=== PATIENT | male | born 1985 | race Caucasian/White ===

== ENCOUNTER 2025-07-16 02:27 | Emergency (ER) | payer BC, SELFPAY ==
[2025-07-16 02:30] VITALS: BP 134/104; PULSE 90; RESP 20; TEMP 36.2; O2SAT 99
[2025-07-16 02:35] VITALS: O2SAT 99
--- NOTE | 2025-07-16 02:35 | ED.ALLEREA ---
HPI - Allergic Reaction General Chief complaint: Allergic Reaction Stated complaint: hives Time Seen by Provider: 07/16/25 02:34 Source: patient Mode of arrival: ambulatory Limitations: no limitations History of Present Illness HPI narrative: This is a 39-year-old male with no significant past medical history presents the ED for rash. Patient states over the past couple days he has had a rash to his lower abdomen and his arms and legs. He does work in wooded areas but states that he is not allergic to poison mecca or poison oak and has never had a reaction although work before. He has been using Benadryl which was initially helping his itchiness but it is no longer helping prompting him to come to the ED. denies chest pain, shortness of breath, nausea vomiting. Related Data Allergies Allergy/AdvReac Type Severity Reaction Status Date / Time nkda Allergy Mild Unknown Uncoded 09/28/24 07:35 cats AdvReac Severe Difficulty Uncoded 09/28/24 07:35 Breathing fiber glass AdvReac Severe Rash Uncoded 09/28/24 07:35 Review of Systems Review of Systems: Gen.: Denies fevers or chills Eyes: Denies eye pain or visual change ENT: Denies congestion Respiratory: Denies shortness of breath or cough CV: Denies chest pain or palpitations GI: Denies abdominal pain nausea, emesis or diarrhea denies burning, urgency, frequency or hematuria Musculoskeletal: Denies back pain or muscle pain Neuro: Denies numbness, tingling, weakness or focal weakness Skin: As per HPI Except as documented, all other systems reviewed and negative PMFSH Past Medical History Medical History Encounter to establish care Thyroid disorder Exam Narrative: APPEARANCE: No acute distress, nontoxic, resting in bed EYES: EOMI HEENT: Normocephalic, atraumatic, OMM RESPIRATORY: No respiratory distress Clear to auscultation bilaterally with no rhonchi wheezing or rales. CARDIOVASCULAR: Regular rate and rhythm without murmurs rubs or gallops. ABDOMINAL: Soft, nontender, nondistended, no rebound or guarding MUSCULOSKELETAl: Moves all extremities. No clubbing, cyanosis or edema. NEURO: Awake and alert. Following commands, speech normal, no focal deficits SKIN:: Scattered urticaria rash to the lower abdomen in a bilateral forearms, and bilateral thighs PSYCHIATRIC: Normal affect/mood, Course Vital Signs Vital signs: Vital Signs Temperature 97.1 F L 07/16/25 02:30 Pulse Rate 90 07/16/25 02:30 Respiratory Rate 20 07/16/25 02:30 Blood Pressure 134/104 H 07/16/25 02:30 Pulse Oximetry 99 07/16/25 02:30 Temperature 97.1 F L 07/16/25 02:30 Pulse Rate 90 07/16/25 02:30 Respiratory Rate 20 07/16/25 02:30 Blood Pressure 134/104 H 07/16/25 02:30 Pulse Oximetry 99 07/16/25 02:35 Oxygen Delivery Room Air 07/16/25 02:35 MDM - Allergic Reaction MDM Narrative Medical decision making narrative: 39-year-old male Presenting for allergic reaction. On initial evaluation patient was in no acute distress afebrile, hemodynamic stable. Differentials include but are not limited to: Anaphylaxis, allergic reaction, contact dermatitis Notable exam findings: Scattered urticaria or rash to the lower abdomen, bilateral forearms and bilateral thighs. Patient does not meet criteria for anaphylaxis at this time. I suspect that he did have contact dermatitis from working in the [place]. As he has not had success with the Benadryl, he was educated on 2nd and 3rd generation antihistamine use. He will also be given a Medrol Dosepak. He was advised to follow-up with his PCP in the next week for re-evaluation. Patient was agreeable to this plan. Given strict return precautions. Medical Records Attestation: I reviewed the patient's medical records. Discharge Plan Discharge Clinical Impression: Contact dermatitis Qualifiers: Contact dermatitis type: irritant Contact dermatitis trigger: unspecified trigger Qualified Code(s): L24.9 - Irritant contact dermatitis, unspecified cause Patient Disposition: Home Condition: Stable Instructions: Antibiotic Form, Contact Dermatitis (ED) Additional Instructions: I would recommend switching from Benadryl to a daily allergy medication such as Zyrtec, Claritin, or Fadumo or any of their physical fitness trainer conversions. Take Medrol Dosepak as prescribed. Follow-up with the PCP in the next week for re-evaluation. Return to the ED for any new or worsening symptoms. Patient Language: Kazakh Prescriptions: New methylprednisolone [Medrol (Vasquez)] 4 mg tablets,dose pack See Rx Instructions .ROUTE .COMPLEX Qty: 21 0RF Rx Instructions: orally per package directions Follow-up/Referrals: Yeny Oliveros APRN [Primary Care Provider, Internal Medicine]
[2025-07-16 03:15] VITALS: BP 136/93; PULSE 89; RESP 18; O2SAT 99
== END 2025-07-16 03:16 | disposition home or self-care (01) ==
LOC: ANHED 02:43
PROVIDERS: Emergency Provider Student in an Organized Health Care Education/Training Program; PCP Nurse Practitioner Family
DX: L24.9 Irritant contact dermatitis, unspecified cause (principal)
CPT/HCPCS: 99283; J7512

== ENCOUNTER 2025-07-16 17:33 | Emergency (ER) | payer BC, SELFPAY ==
[2025-07-16 17:41] VITALS: BP 153/93; PULSE 87; RESP 18; TEMP 36.7; O2SAT 96
--- NOTE | 2025-07-16 18:16 | ED.SKABFB ---
HPI - Skin/Abscess/Foreign Bdy General Chief complaint: Skin/Abscess/Foreign Body Stated complaint: rash Time Seen by Provider: 07/16/25 17:45 Source: patient Mode of arrival: ambulatory Limitations: no limitations History of Present Illness HPI narrative: 39-year-old male presents with complaint of itchy hives to right upper arm, right side of trunk and bilateral thighs. Patient has had hive-like rash for the past 2-3 days. Was taking Benadryl that was controlling rash until itching and hives became worse in the middle the night. Patient was seen at ER around 2:00 a.m.. Given 20 mg prednisone, started Medrol Dosepak today. Patient states that hives are now worse. No difficulty breathing or swallowing. All systems reviewed and negative except as noted above. Related Data Allergies Allergy/AdvReac Type Severity Reaction Status Date / Time nkda Allergy Mild Unknown Uncoded 09/28/24 07:35 cats AdvReac Severe Difficulty Uncoded 09/28/24 07:35 Breathing fiber glass AdvReac Severe Rash Uncoded 09/28/24 07:35 [facility] Past Medical History Medical History Encounter to establish care Thyroid disorder Comments At time of signature, agree with nursing past medical, surgical, social and family history. There is no relevant family history pertinent to the presenting complaint. Exam Narrative: GENERAL: This is a well-nourished, well-developed patient, in no apparent distress. HEAD: normocephalic, atraumatic. EYES: PERRL. Sclera clear/white. Vision is grossly intact. EARS: External ears normal NOSE: External nose normal NECK: Neck supple, non-tender without lymphadenopathy, masses or thyromegaly. CARDIOVASCULAR: Regular rate and rhythm without murmurs, gallops, or rubs. RESPIRATORY: Clear to auscultation. Breath sounds equal bilaterally. No wheezes, rales, or rhonchi. SKIN: warm, Dry, intact with no suspicious lesions, good texture and turgor. Erythematous hive-like rash to right upper arm, right side of trunk, bilateral anterior thighs. NEURO: awake, alert, and oriented to person, place and time. There were no obvious focal neurologic abnormalities. EXTREMITIES: No joint tenderness, effusion, or edema noted. Course Course Level of Care: [facility] Visit Vital Signs Vital signs: Vital Signs Temperature 36.7 C 07/16/25 17:41 Pulse Rate 87 07/16/25 17:41 Respiratory Rate 18 07/16/25 17:41 Blood Pressure 153/93 H 07/16/25 17:41 Pulse Oximetry 96 07/16/25 17:41 Oxygen Delivery Room Air 07/16/25 17:41 Temperature 36.7 C 07/16/25 17:41 Pulse Rate 87 07/16/25 17:41 Respiratory Rate 18 07/16/25 17:41 Blood Pressure 153/93 H 07/16/25 17:41 Pulse Oximetry 96 07/16/25 17:41 Oxygen Delivery Room Air 07/16/25 17:41 Reviewed MDM - Skin/Abscess/Foreign Bdy MDM Narrative Medical decision making narrative: Patient given Solu-Medrol IM at [facility]. Recommend he stop Medrol Dosepak, will prescribe prednisone taper. Patient is well-appearing, nontoxic. Discharge Plan Discharge Clinical Impression: Urticaria Patient Disposition: Home Condition: Stable Instructions: Urticaria (ED) Additional Instructions: Stop medrol dosepak. Start prednisone prescription tomorrow morning. Continue to take benadryl every 4 to 6 hours as needed for itching. See your doctor if not improving. Patient Language: Syrian Prescriptions: New prednisone 20 mg tablet See Rx Instructions .ROUTE .COMPLEX Qty: 9 0RF Rx Instructions: Take 2 tablets daily for 2 days then 1 tablet daily for 5 days Discontinued methylprednisolone [Medrol (Vasquez)] 4 mg tablets,dose pack See Rx Instructions .ROUTE .COMPLEX Qty: 21 0RF Rx Instructions: orally per package directions Follow-up/Referrals: Yeny Oliveros APRN [Primary Care Provider, Internal Medicine] Time of Disposition: 18:00
== END 2025-07-16 18:08 | disposition home or self-care (01) ==
PROVIDERS: Emergency Provider Nurse Practitioner Family; PCP Nurse Practitioner Family
DX: L50.9 Urticaria, unspecified (principal)
CPT/HCPCS: 96372; 99213; G0463; J2919